=== PATIENT | male | born 1965 | race Caucasian/White ===

== ENCOUNTER → 2018-01-09 | Outpatient (CLI) | payer OTHER ==
[~2018-01-09] MED LIST: CARV6.252 PO; DIGO125T PO; EPLE50TA3 MT; FURO-92 PO; INSU100C5 SQ-INSULIN; INSU100V8 SQ; POTA20PA PO; VALS160T3 PO; WARF5TAB PO
== END ==
LOC: CFH 15:02
PROVIDERS: ATTEND Family Medicine
DX: M47.816 Spondylosis without myelopathy or radiculopathy, lumbar region (principal)
CPT/HCPCS: 72110